=== PATIENT | male | born 1995 | race Hispanic/Latino ===

== ENCOUNTER 2016-12-23 16:19 | Emergency (ER) | payer SELFPAY ==
[2016-12-23] MEDS ORDERED: Adacel (T-DAP) 0.5 ML VIAL ONE (16:27)
== END 2016-12-23 17:26 | disposition home or self-care (01) ==
LOC: ERS 16:19
DX: S61.412A Laceration without foreign body of left hand, initial encounter (principal); W26.0XXA Contact with knife, initial encounter; Y93.G3 Activity, cooking and baking
CPT/HCPCS: 12001; 90471; 90715